=== PATIENT | female | born 1990 | race Hispanic/Latino ===

== ENCOUNTER 2017-03-06 10:56 | Emergency (ER) | payer SELFPAY ==
[~2017-03-06] VITALS: Ht 154.9 cm; Wt 55.6 kg
[~2017-03-06 10:56] MED LIST: NOHOMEMEDS
[2017-03-06 11:40] LABS: EOSINOPHIL (%) 0.9 % (0-5); EOSINOPHIL COUNT 0.1 K/uL (0-0.3); HEMATOCRIT 33.9 % (36.0-46.0); IMMATURE GRANULOCYTE (%) 0.5 % (0.0-0.7); INSTRUMENT ABS NEUTROPHIL CT 6.5 K/uL; LYMPHOCYTE COUNT 1.5 K/uL (1.0-2.8); MCH 29.9 PG (29.0-34.0); MCHC 35.4 G/DL (30.0-36.0); MCV 84.5 FL (83-99); MONOCYTE (%) 7.2 % (3-12); MONOCYTE COUNT 0.6 K/uL (0-0.8); NEUTROPHIL (%) 74.1 % (45-76); NEUTROPHIL COUNT 6.5 K/uL (1.8-6.4); PLATELET COUNT 242 K/uL (156-360); RBC DIS.WIDTH-CV 11.7 % (11.8-14.6); RBC DIS.WIDTH-SD 35.7 % (39-53); RED BLOOD COUNT 4.01 M/uL (3.80-5.20); WHITE BLOOD COUNT 8.8 K/uL (4.1-10.2)
[2017-03-06 11:48] LABS: CHLORIDE 109 mEq/L (99-109); SODIUM 143 mEq/L (136-147)
[2017-03-06 11:51] LABS: GLUCOSE 133 mg/dL (70-99)
[2017-03-06 11:52] LABS: ANION GAP 11 MEQ/L (2-14)
[2017-03-06 11:53] LABS: TOTAL BILIRUBIN 0.5 mg/dL (0.0-1.0)
[2017-03-06 11:54] LABS: GFR ESTIMATE (CALCULATED) > 59 mL/min/; SERUM ETHYL ALCOHOL < 10 mg/dL
[2017-03-06 11:55] LABS: ALKALINE PHOSPHATASE 48 IU/L (3-129)
[2017-03-06 11:56] LABS: UREA NITROGEN (BUN) 16 mg/dL (9-23)
[2017-03-06 11:58] LABS: CREATINE KINASE 445 IU/L (1-294); SALICYLATE < 5.0 MG/DL (15-30); TOTAL CK 445 IU/L (1-294)
[2017-03-06 12:04] LABS: QUANTITATIVE HCG < 4.0 MIU/ML
[2017-03-06 12:05] LABS: CK-MB 4.4 ng/mL (0.0-4.9)
[2017-03-06 17:21] LABS: ADD MIUA? YES; BILIRUBIN NEGATIVE; BLOOD NEGATIVE; COLOR AMBER ((YELLOW)); GLUCOSE (STRIP) NEGATIVE; KETONES 80; LEUKOCYTES SMALL; NITRITE POSITIVE; PROTEIN (STRIP) 100; SPECIFIC GRAVITY 1.029 (1.000-1.030)
[2017-03-06 17:34] LABS: ADD MEDTOX COMMENT Y; AMPHETAMINE NEGATIVE (500 ng/mL); BARBITURATES NEGATIVE (200 ng/mL); BENZODIAZEPINES PRESUMPTIVE POSITIVE (150 ng/mL); COCAINE PRESUMPTIVE POSITIVE (150 ng/mL); INTERNAL CONTROLS VALID? YES; METHADONE NEGATIVE (200 ng/mL); METHAMPHETAMINE NEGATIVE (500 ng/mL); OPIATES (MORPHINE) NEGATIVE (100 ng/mL); OXYCODONE NEGATIVE (100 ng/mL); PHENCYCLIDINE NEGATIVE (25 ng/mL); PROPOXYPHENE NEGATIVE (300 ng/mL); THC CANNABINOIDS PRESUMPTIVE POSITIVE (50 ng/mL); TRICYCLIC ANTIDEPRESSANTS NEGATIVE (300 ng/mL)
[2017-03-06] MEDS ORDERED: MACROBID100 MG PO (17:51)
[2017-03-06 18:02] LABS: RED BLOOD CELLS NONE SEEN /HPF (0-5)
[2017-03-06 18:03] LABS: BACTERIA 3+ /HPF; EPITHELIAL CELLS 2+ /HPF; MUCUS NONE SEEN /LPF; UCUL ADDED? YES
[2017-03-06 18:07] LABS: BENZODIAZEPINES QUANT VALUE 0 NG/ML; BENZODIAZEPINES, URINE SCREEN Negative (200 ng/mL)
[2017-03-06 21:49] VITALS: BP 100/62
== END 2017-03-06 21:50 | disposition home or self-care (01) ==
LOC: EME 10:56
PROVIDERS: Emergency Medicine
DX: T50.901A Poisoning by unspecified drugs, medicaments and biological substances, accidental (unintentional), initial encounter (principal); E87.6 Hypokalemia; N39.0 Urinary tract infection, site not specified; Z72.0 Tobacco use
CPT/HCPCS: 80053; 81003; 82550; 82553; 84702; 84999; 85025; 87077; 87086; 87186; 90837; 93005; 99281; 99285; G0480; J2060; J7030